=== PATIENT | female | born 1960 | race Caucasian/White ===

== ENCOUNTER → 2016-09-15 | Outpatient (CLI) | payer OTHER ==
[~2016-09-15] MED LIST: ACET-1256 PO; FLX5 PO; RXC5 PO
--- NOTE | 2016-09-15 15:07 | MAMMOGRAPHY REPORT ---
BILATERAL DIGITAL SCREENING MAMMOGRAM WITH CAD: 09/15/2016 TECHNIQUE: Current study was also evaluated with a Computer Aided Detection (CAD) system. Bilatera l CC and MLO views were obtained. COMPARISON: Comparison is made to exams dated: 08/06/2015 mammogram, 08/04/2014 mammogram, 08/01/2013 mammogram, 07/30/2012 mammogram, 08/02/2011 mammogram, and 07/28/2011 mammogram - [facility]. BREAST COMPOSITION: The tissue of both breasts is heterogeneously dense, which may obscure small ma sses. FINDINGS: No suspicious masses, calcifications, or areas of architectural distortion are noted in e ither breast. There has been no significant interval change compared to prior exams. IMPRESSION: ACR BI-RADS CATEGORY 1: NEGATIVE There is no mammographic evidence of malignancy. A 1 year screening mammogram is recommended. The p atient will receive written notification of the results. Approximately 10% of breast cancers are not detected with mammography. A negative mammographic repor t should not delay biopsy if a clinically suggestive mass is present. Rhina Kuo M.D. ah/:09/15/2016 12:09:47 Engineering Mechanic: Lori Young RT(R)(M), [facility] letter sent: Normal 1/2 BI-RADS Code: ACR BI-RADS Category 1: Negative
== END | disposition home or self-care (01) ==
LOC: C.MAMM 11:01
PROVIDERS: ATTEND Obstetrics & Gynecology
DX: Z12.31 Encounter for screening mammogram for malignant neoplasm of breast (principal)

== ENCOUNTER → 2016-11-21 | Outpatient (CLI) | payer OTHER | END | disposition home or self-care (01) | LOC: C.PAPS 12:05 | PROVIDERS: ATTEND Obstetrics & Gynecology | DX: Z12.4 Encounter for screening for malignant neoplasm of cervix (principal); Z11.51 Encounter for screening for human papillomavirus (HPV) ==

== ENCOUNTER → 2017-09-20 | Outpatient (CLI) | payer OTHER ==
--- NOTE | 2017-09-20 15:47 | MAMMOGRAPHY REPORT ---
UNILATERAL LEFT DIGITAL DIAGNOSTIC MAMMOGRAM TOMOSYNTHESIS: 09/20/2017 CLINICAL HISTORY: Callback from screening mammogram for left breast asymmetry. TECHNIQUE: Breast tomosynthesis in addition to standard 2D mammography was performed. A full left X CCL and spot compression left CC and MLO 2D and tomosynthesis images were obtained. COMPARISON: Comparison is made to exams dated: 09/18/2017 mammogram, 09/15/2016 mammogram, 08/04/2014 m ammogram, 07/30/2012 mammogram, and 08/02/2011 ultrasound - [facility]. BREAST COMPOSITION: The tissue of the left breast is heterogeneously dense, which may obscure small masses. FINDINGS: The previously described nodular asymmetry seen within the left lateral posterior breast on the cc images effaces on the additional views and has the appearance of normal fibroglandular tissue on the additional tomosynthesis images. No suspicious masses, calcifications, or areas of crm architect ural distortion are noted on the additional views. The finding is benign and compatible with normal fibroglandular tissue. IMPRESSION: ACR BI-RADS CATEGORY 2: BENIGN The left breast asymmetry effaces on the additional views, and is benign and compatible with normal f ibroglandular tissue. There is no mammographic evidence of malignancy. A 1 year screening mammogram is recommended. The patient has been verbally notified of the results. Approximately 10% of breast cancers are not detected with mammography. A negative mammographic report should not delay biopsy if a clinically suggestive mass is present. Rhina Kuo M.D. /:09/20/2017 11:50:10 Computer Project Manager: Delicia ANTOINE)(Aguilar), [facility] letter sent: Normal 1/2 BI-RADS Code: ACR BI-RADS Category 2: Benign
== END | disposition home or self-care (01) ==
LOC: C.MAMM 11:21
PROVIDERS: ATTEND Obstetrics & Gynecology
DX: N64.89 Other specified disorders of breast (principal); R92.2 Inconclusive mammogram

== ENCOUNTER 2018-12-16 07:57 | Inpatient (IN) ==
[2018-12-16] MEDS ORDERED: ACETAMINOPHEN 500 MG TAB PO STA (08:18)
[2018-12-16] MEDS ORDERED: AZTREONAM 2,000 MG in DEXTROSE 5% 100 ML IV STA (08:18)
[2018-12-16] MEDS ORDERED: VANCOMYCIN CONSULT ACTIVE PRN (08:18)
[2018-12-16] MEDS ORDERED: ALBUTEROL 0.083% NEBU SOLN 3 ML VIAL NEB STA ×2 (08:18→10:04)
[2018-12-16] MEDS ORDERED: VANCOMYCIN HCL 1,000 MG/270 ML BAG IV STA (08:18)
[2018-12-16] MEDS ORDERED: LEVOFLOXACIN/D5W 750 MG/150 ML BAG IV STA (08:18)
[2018-12-16] MEDS ORDERED: HYDROmorphone INJ 0.5 MG/0.5 ML SYR IV PRN (08:26)
[2018-12-16] MEDS ORDERED: ONDANSETRON INJ 2 MG/ML 2 ML VIAL IV STA (08:27)
[2018-12-16 08:49] LABS: Basophils # (auto) 0.01 K/uL (0-0.2); Basophils % (auto) 0.1 %; Eosinophils # (auto) 0.01 K/uL (0-0.5); Eosinophils % (auto) 0.1 %; Hematocrit (blood only) 37.1 % (37-47); Hemoglobin 12.8 g/dL (12.0-16.0); Immature Granulocytes # (auto) 0.02 K/uL (0.00-0.02); Immature Granulocytes % (auto) 0.3 %; Lymphocytes % (auto) 7.4 %; Mean Corpuscular Hgb Conc 34.5 g/dL (32-36); Mean Corpuscular Volume 92.5 fL (80-100); Monocytes # (auto) 0.37 K/uL (0.11-0.59); Monocytes % (auto) 5.5 %; Neutrophils # (auto) 5.87 K/uL (1.4-6.5); Neutrophils % (auto) 86.6 %; Platelet Count 132 K/uL (130-400); RDW Coefficient of Variation 12.1 % (11.5-14.5); RDW Standard Deviation 41.3 fL (36.4-46.3); Red Blood Count 4.01 M/uL (4.2-5.4); White Blood Count 6.78 K/uL (4.8-10.8)
[2018-12-16 09:00] LABS: INR 1.1 (0.9-1.1); Partial Thromboplastin Ratio 1.1; Prothrombin Time 11.2 Seconds (9.0-12.0)
[2018-12-16 09:10] LABS: Alanine Aminotransferase 42 U/L (12-78); Albumin Level 3.6 gm/dl (3.4-5.0); Aspartate Aminotransferase 37 U/L (15-37); BUN Creatinine Ratio 14.4 (10-20); Blood Urea Nitrogen 13 mg/dl (7-18); Calcium 9.3 mg/dl (8.5-10.1); Carbon Dioxide 27 mmol/L (21-32); Chloride 103 mmol/L (98-107); Creatinine Clr Calc Pharmacy 75.4 ml/min; Est GFR (African American) 83.4; Est GFR (Non-African American) 71.9; Glucose 126 mg/dl (70-99); Potassium 3.8 mmol/L (3.5-5.1); Sodium 137 mmol/L (136-145)
[2018-12-16 09:13] LABS: iSTAT Creatinine 0.8 mg/dl (0.6-1.3); iSTAT Hemoglobin 12.6 g/dl (12.0-16.0); iSTAT Ionized Calcium 1.12 mmol/l (1.12-1.32); iSTAT Potassium 3.8 mEq/L (3.3-5.0)
[2018-12-16 09:15] LABS: Albumin Globulin Ratio 0.9 (0.9-2); Alkaline Phosphatase 63 U/L (45-117); Bilirubin,Total 0.7 mg/dl (0.2-1); Creatine Kinase 45 U/L (26-192); Creatine Kinase MB < 1.0 ng/ml (0.5-3.6); Total Protein 7.6 gm/dl (6.4-8.2); Troponin I < 0.015 ng/ml (0-0.045)
--- NOTE | 2018-12-16 09:33 | XRay Report ---
XR chest 1V portable HISTORY: Sepsis COMPARISON: Chest CTA 12/15/2018. FINDINGS: No pneumothorax. The heart is normal in size. The right lung is clear. Trace left pleural e ffusion with a small left basilar density. Old, healed left-sided rib fractures. IMPRESSION: Trace left pleural effusion with a small left basilar density. This is nonspecific but favor subsegme ntal atelectasis. Electronically signed by: Lionel Rodriguez M.D. 12/16/2018 9:32 AM
--- NOTE | 2018-12-16 09:58 | Ultrasound Report ---
BILATERAL LOWER EXTREMITY VENOUS DOPPLER HISTORY: Pt c/o pleural effusion recent travel COMPARISON STUDY: None. FINDINGS: There is normal compressibility, flow, and augmentation within the bilateral lower extremit y deep venous systems. IMPRESSION: No DVT within the right or left lower extremity. Electronically signed by: Lionel Rodriguez M.D. 12/16/2018 9:56 AM
[2018-12-16] MEDS ORDERED: KETOROLAC 30 MG/ML VIAL IV STA (10:04)
--- NOTE | 2018-12-16 12:40 | Emergency Department Note ---
Entered by Stephany Mcelroy acting as a scribe for History of Present Illness General Chief complaint: Fever Stated complaint: FEVER, LUNG INFECTION Time Seen by Provider: 12/16/18 08:07 Source: patient History of Present Illness Onset (ago): hour(s) (this morning) Location: head Pain Consistency: + other (episode) Maximum Pain Intensity: 8 Quality: + other (fever) Relieved By: not by medication (Ibuprofen) Associated symptoms: + other (left back pain) The patient is a 58 year old female that is presenting to the Emergency Room with complaints of an episode of a fever that started this morning. The patient reports that she was in the ED yesterday for left back pain and was diagnosed with a left pleural effusion. She notes that she was started on a course of Doxycycline and was told to return to the ED if she developed a fever. She states that she had a fever of 101.8F this morning upon waking. The patient reports that she took Ibuprofen every 4 hours yesterday and then an oxycodone last night before bed. She denies taking any medication this morning prior to arrival. She states that she used her incentive spirometer as prescribed yesterday. She notes that her left back pain is still present today. Home Medications Home Medications Medication Instructions Recorded Confirmed Type docusate sodium [Colace] 100 mg PO BID #60 cap 12/15/18 12/16/18 Rx doxycycline hyclate 100 mg PO BID 10 Days #20 tab 12/15/18 12/16/18 Rx glucosamine sulfate [Glucosamine] 500 mg PO BID 12/15/18 12/16/18 History multivitamin 1 cap PO QAM 12/15/18 12/16/18 History naproxen sodium [Aleve] 220 mg PO BID PRN 12/15/18 12/16/18 History omega 6-npt-jej-fish oil [Fish Oil] 1 cap PO DIRECTED 12/15/18 12/16/18 History oxycodone 5 mg PO Q6H #14 tab 12/15/18 12/16/18 Rx sennosides [Senokot] 8.6 mg PO HS #30 tab 12/15/18 12/16/18 Rx Allergies Allergy/AdvReac Type Severity Reaction Status Date / Time Penicillins Allergy Unknown ? Verified 12/16/18 08:48 Past Med/Surg History Social History Preferred Language: Italian Communication Ability: Effective Beliefs That Will Affect Care: None marital status: Current Living Situation: Spouse current occupational status: employed Other Information That Helps Us Care for You: No Feels Safe at Home: Yes Safety Concerns: Feels Safe At This Time Smoking Status: Former smoker Hx Alcohol Use: Yes Alcohol type: wine Hx Substance Use: No Review of Systems See HPI for pertinent positives & negatives. and A total of 10 systems reviewed and were otherwise negative Physical Exam Vital Signs Vital Signs - 24 hr 12/16/18 08:08 12/16/18 08:25 12/16/18 08:30 Temperature 38.1 C H Temperature Source Oral Sepsis Recent Fever Within 48 Hours Yes Sepsis New/Unexplained Change in Mental Status No Sepsis Action Taken by Nursing No Action Required Pulse Rate 92 H 99 H 89 Pulse Rate [Apical] Pulse Rhythm Regular Pulse Strength Normal Respiratory Rate 20 21 30 H Respiratory Effort / Characteristics Non-Labored Spontaneous Respiratory Depth Normal Respiratory Pattern Regular Blood Pressure 120/74 Blood Pressure Mean 89 Blood Pressure Position Sitting Pulse Oximetry 95 Oxygen Delivery Method Room Air 12/16/18 09:00 12/16/18 09:03 12/16/18 09:18 Temperature Temperature Source Sepsis Recent Fever Within 48 Hours Sepsis New/Unexplained Change in Mental Status Sepsis Action Taken by Nursing Pulse Rate 78 Pulse Rate [Apical] 76 Pulse Rhythm Pulse Strength Respiratory Rate 24 14 Respiratory Effort / Characteristics Spontaneous Respiratory Depth Respiratory Pattern Blood Pressure Blood Pressure Mean Blood Pressure Position Pulse Oximetry 96 Oxygen Delivery Method Room Air Room Air 12/16/18 09:30 12/16/18 10:01 12/16/18 10:02 Temperature Temperature Source Sepsis Recent Fever Within 48 Hours Sepsis New/Unexplained Change in Mental Status Sepsis Action Taken by Nursing Pulse Rate 90 95 H 96 H Pulse Rate [Apical] Pulse Rhythm Pulse Strength Respiratory Rate 18 24 24 Respiratory Effort / Characteristics Respiratory Depth Respiratory Pattern Blood Pressure 105/63 Blood Pressure Mean 77 Blood Pressure Position Pulse Oximetry Oxygen Delivery Method 12/16/18 10:08 Temperature 37 C Temperature Source Oral Sepsis Recent Fever Within 48 Hours Sepsis New/Unexplained Change in Mental Status Sepsis Action Taken by Nursing Pulse Rate Pulse Rate [Apical] Pulse Rhythm Pulse Strength Respiratory Rate Respiratory Effort / Characteristics Non-Labored Spontaneous Respiratory Depth Normal Respiratory Pattern Regular Blood Pressure Blood Pressure Mean Blood Pressure Position Pulse Oximetry Oxygen Delivery Method Room Air GENERAL: Awake, alert, well-appearing, in no acute distress HENT: Normocephalic, atraumatic. Oropharynx unremarkable. EYES: Normal conjunctiva. Sclera non-icteric. NECK: Supple. No nuchal rigidity. FROM. No JVD. RESPIRATORY: Clear to auscultation. CARDIAC: Regular rate, normal rhythm. Extremities warm and well perfused. Pulses equal. ABDOMEN: Soft, non-distended. No tenderness to palpation. No rebound or guarding. No masses. RECTAL: Deferred. MUSCULOSKELETAL: Chest examination reveals no tenderness. The back is symmetrical on inspection without obvious abnormality. There is no CVA tenderness to palpation. No joint edema. LOWER EXTREMITIES: Calves are equal size bilaterally and non-tender. No edema. No discoloration. NEURO: Normal sensorium. No sensory or motor deficits noted. SKIN: No rash or jaundice noted. Course 0813:The patient was evaluated in room B02. A complete history and physical examination was performed. 1002: I discussed the patients case with a resident for Dr. Nguyen [facility], who will evaluate the patient for further management and care. 1010: Upon reevaluation, the patient is resting comfortably. I discussed laboratory and radiographic results with the patient. She verbalized agreement of the treatment plan. The patient will be evaluated for further management and care. Administered Medications Hydromorphone HCl (Dilaudid) 0.5 mg IV Q15M PRN PRN Reason: Pain Stop: 12/30/18 08:25 Last Admin: 12/16/18 08:53 Dose: 0.5 mg Documented by: [id number] Discontinued Medications Acetaminophen (Tylenol) 1,000 mg PO NOW STA Stop: 12/16/18 08:19 Last Admin: 12/16/18 08:53 Dose: 1,000 mg Documented by: [id number] Albuterol (Ventolin 0.083% 2.5mg/3ml) 2.5 mg NEB NOW STA Stop: 12/16/18 08:19 Last Admin: 12/16/18 09:17 Dose: 2.5 mg Documented by: [id number] Albuterol (Ventolin 0.083% 2.5mg/3ml) 2.5 mg NEB NOW STA Stop: 12/16/18 10:05 Last Admin: 12/16/18 10:48 Dose: 2.5 mg Documented by: [id number] Vancomycin HCl (Vancomycin Hcl) 1,000 mg in 270 mls @ 125 mls/hr IV NOW STA Stop: 12/16/18 10:27 Last Infusion: 12/16/18 12:13 Dose: 0 mls/hr Documented by: [id number] Admin: 12/16/18 10:03 Dose: 125 mls/hr Documented by: [id number] Aztreonam 2,000 mg/ Dextrose 110 mls @ 100 mls/hr IV NOW STA; Protocol Stop: 12/16/18 09:23 Last Infusion: 12/16/18 10:14 Dose: 0 mls/hr Documented by: [id number] Admin: 12/16/18 08:52 Dose: 100 mls/hr Documented by: [id number] Levofloxacin/Dextrose (Levaquin/D5w) 750 mg in 150 mls @ 100 mls/hr IV NOW STA Stop: 12/16/18 09:47 Last Infusion: 12/16/18 11:00 Dose: 0 mls/hr Documented by: [id number] Admin: 12/16/18 09:10 Dose: 100 mls/hr Documented by: [id number] Ketorolac Tromethamine (Toradol) 30 mg IV NOW STA Stop: 12/16/18 10:05 Last Admin: 12/16/18 10:38 Dose: 30 mg Documented by: [id number] Ondansetron HCl (Zofran) 4 mg IV NOW STA Stop: 12/16/18 08:28 Last Admin: 12/16/18 08:52 Dose: 4 mg Documented by: [id number] Medical Decision Making Differential Diagnosis Differential diagnosis: Etiologies such as viral syndrome, otitis, pharyngitis, pneumonia, influenza, meningitis, urinary tract infection, sepsis, bacteremia, as well as others were entertained. Medical Records Attestation: I reviewed the patient's medical records. Home Medications Current Medication List: was personally reviewed by me Laboratory Data Attestation: I reviewed the patient's lab results. Result diagrams: 12/16/18 08:39 12/16/18 08:39 Lab Results 12/16/18 12/16/18 12/16/18 Range/Units 08:39 08:39 08:39 WBC 6.78 (4.8-10.8) K/uL RBC 4.01 L (4.2-5.4) M/uL Hgb 12.8 (12.0-16.0) g/dL POC Hgb (12.0-16.0) g/dl Hct 37.1 (37-47) % POC Hct (37-47) % MCV 92.5 (80-100) fL MCH 31.9 (25-34) pg MCHC 34.5 (32-36) g/dL RDW Std Deviation 41.3 (36.4-46.3) fL RDW Coeff of Shante 12.1 (11.5-14.5) % Plt Count 132 (130-400) K/uL MPV 9.0 (7.4-10.4) fL Immature Gran % (Auto) 0.3 % Neut % (Auto) 86.6 % Lymph % (Auto) 7.4 % [place] % (Auto) 5.5 % Eos % (Auto) 0.1 % Baso % (Auto) 0.1 % Immature Gran # (Auto) 0.02 (0.00-0.02) K/uL Neut # (Auto) 5.87 (1.4-6.5) K/uL Lymph # (Auto) 0.50 L (1.2-3.4) K/uL [place] # (Auto) 0.37 (0.11-0.59) K/uL Eos # (Auto) 0.01 (0-0.5) K/uL Baso # (Auto) 0.01 (0-0.2) K/uL PT 11.2 (9.0-12.0) Seconds INR 1.1 (0.9-1.1) APTT 29.0 (21.0-31.0) Seconds PTT Ratio 1.1 POC Sodium (135-144) mEq/L Sodium 137 (136-145) mmol/L POC Potassium (3.3-5.0) mEq/L Potassium 3.8 (3.5-5.1) mmol/L POC Chloride (101-112) mEq/L Chloride 103 (98-107) mmol/L Carbon Dioxide 27 (21-32) mmol/L POC Total CO2 (24-31) mEq/l Anion Gap 7.0 (3-11) POC Anion Gap (16-25) mmol/L POC BUN (7-18) mg/dl BUN 13 (7-18) mg/dl Creatinine 0.89 (0.6-1.2) mg/dl POC Creatinine (0.6-1.3) mg/dl Est Cr Clr Drug Dosing 75.4 ml/min Est GFR ( Amer) 83.4 Est GFR (Non-Af Amer) 71.9 BUN/Creatinine Ratio 14.4 (10-20) Glucose 126 H (70-99) mg/dl POC Glucose (other) (70-99) mg/dl Lactate (0.4-2.0) mmol/L Calcium 9.3 (8.5-10.1) mg/dl POC Ioniz Calcium Yoko (1.12-1.32) mmol/l Total Bilirubin 0.7 (0.2-1) mg/dl AST 37 (15-37) U/L ALT 42 (12-78) U/L Alkaline Phosphatase 63 (45-117) U/L Total Creatine Kinase 45 (26-192) U/L CK-MB (CK-2) < 1.0 (0.5-3.6) ng/ml CK/CKMB % Calc TNP Troponin I < 0.015 (0-0.045) ng/ml Total Protein 7.6 (6.4-8.2) gm/dl Albumin 3.6 (3.4-5.0) gm/dl Globulin 4.0 (2.5-4.0) gm/dl Albumin/Globulin Ratio 0.9 (0.9-2) Procalcitonin (0-0.5) ng/ml 12/16/18 12/16/18 12/16/18 Range/Units 08:39 08:39 08:44 WBC (4.8-10.8) K/uL RBC (4.2-5.4) M/uL Hgb (12.0-16.0) g/dL POC Hgb 12.6 (12.0-16.0) g/dl Hct (37-47) % POC Hct 37 (37-47) % MCV (80-100) fL MCH (25-34) pg MCHC (32-36) g/dL RDW Std Deviation (36.4-46.3) fL RDW Coeff of Shante (11.5-14.5) % Plt Count (130-400) K/uL MPV (7.4-10.4) fL Immature Gran % (Auto) % Neut % (Auto) % Lymph % (Auto) % [place] % (Auto) % Eos % (Auto) % Baso % (Auto) % Immature Gran # (Auto) (0.00-0.02) K/uL Neut # (Auto) (1.4-6.5) K/uL Lymph # (Auto) (1.2-3.4) K/uL [place] # (Auto) (0.11-0.59) K/uL Eos # (Auto) (0-0.5) K/uL Baso # (Auto) (0-0.2) K/uL PT (9.0-12.0) Seconds INR (0.9-1.1) APTT (21.0-31.0) Seconds PTT Ratio POC Sodium 135 (135-144) mEq/L Sodium (136-145) mmol/L POC Potassium 3.8 (3.3-5.0) mEq/L Potassium (3.5-5.1) mmol/L POC Chloride 99 L (101-112) mEq/L Chloride (98-107) mmol/L Carbon Dioxide (21-32) mmol/L POC Total CO2 24 (24-31) mEq/l Anion Gap (3-11) POC Anion Gap 17.0 (16-25) mmol/L POC BUN 11 (7-18) mg/dl BUN (7-18) mg/dl Creatinine (0.6-1.2) mg/dl POC Creatinine 0.8 (0.6-1.3) mg/dl Est Cr Clr Drug Dosing ml/min Est GFR ( Amer) Est GFR (Non-Af Amer) BUN/Creatinine Ratio (10-20) Glucose (70-99) mg/dl POC Glucose (other) 131 H (70-99) mg/dl Lactate 0.8 (0.4-2.0) mmol/L Calcium (8.5-10.1) mg/dl POC Ioniz Calcium Yoko 1.12 (1.12-1.32) mmol/l Total Bilirubin (0.2-1) mg/dl AST (15-37) U/L ALT (12-78) U/L Alkaline Phosphatase (45-117) U/L Total Creatine Kinase (26-192) U/L CK-MB (CK-2) (0.5-3.6) ng/ml CK/CKMB % Calc Troponin I (0-0.045) ng/ml Total Protein (6.4-8.2) gm/dl Albumin (3.4-5.0) gm/dl Globulin (2.5-4.0) gm/dl Albumin/Globulin Ratio (0.9-2) Procalcitonin 0.17 (0-0.5) ng/ml Imaging Data Radiologist's Impression: Radiology results as stated below per my review and the radiologist's interpretation: XR chest 1V portable HISTORY: Sepsis COMPARISON: Chest CTA 12/15/2018. FINDINGS: No pneumothorax. The heart is normal in size. The right lung is clear. Trace left pleural effusion with a small left basilar density. Old, healed left- sided rib fractures. IMPRESSION: Trace left pleural effusion with a small left basilar density. This is nonspecific but favor subsegmental atelectasis. Electronically signed by: Lionel Rodriguez M.D. 12/16/2018 9:32 AM BILATERAL LOWER EXTREMITY VENOUS DOPPLER HISTORY: Pt c/o pleural effusion recent travel COMPARISON STUDY: None. FINDINGS: There is normal compressibility, flow, and augmentation within the bilateral lower extremity deep venous systems. IMPRESSION: No DVT within the right or left lower extremity. Electronically signed by: Lionel Rodriguez M.D. 12/16/2018 9:56 AM ECG Data Attestation: I personally reviewed and interpreted this ECG as follows: Indication: other (fever) Rate (beats per minute): 81 Rhythm: normal sinus Findings: + T-wave inversion (Anterior); no ST depression, no ST elevation and no acute ischemic change Comparison ECG Date: from (12/15/2018) Change: no significant change Blood Pressure Blood Pressure Findings: Normal blood pressure MDM Narrative This is a 58-year-old female who presents back to the emergency department with a fever after being diagnosed with a pleural effusion yesterday. The patient has been taking doxycycline as well as ibuprofen and Tylenol at home however is still complaining of pain. Based on the patient's complaint she was sent for a chest x-ray. Because the patient was on a recent trip to [place] she was also sent for a bilateral duplex of her lower extremities in case this is a DVT versus PE. She was given Tylenol Dilaudid as well as Toradol for her pain. She was also given albuterol breathing treatments. I did discuss the case with the hospitalist service who agreed to admit the patient. In the meantime blood cultures were obtained and the patient was started on aztreonam Levaquin and vancomycin. Patient was in agreement with the treatment plan. Impression & Plan Fever, Pleural effusion Discharge Plan Visit Data *Final* Discharge Date/Time: 12/16/18 11:09 Chief Complaint: Fever Stated Complaint: FEVER, LUNG INFECTION ED Provider: Abbe Trujillo Discharge Problem: Fever, Pleural effusion Patient Disposition: Admitted As Inpatient Discharge Instructions Interventions: ED Discharge Assessment Last Done: 12/16/18 11:09 Discharge Problem: Fever Qualifiers: Fever type: unspecified Qualified Code(s): R50.9 - Fever, unspecified The scribe's documentation has been prepared under my direction and personally reviewed by me in its entirety. I confirm that the note above accurately reflects all work, treatment, procedures, and medical decision making performed by me.
--- NOTE | 2018-12-16 13:40 | History & Physical Report ---
Date of Service December 16, 2018 Assessment & Plan (1) Back pain: Back Pain likely secondary to rhomboid muscle strain, Able to somewhat recreate character of pain with digital manipulation of muscle No concerning signs or symptoms, completely resolved at this point Will discharge with voltaren gel to be used PRN\ CTA showing no PE, no evidence of infection, and a trace PE CXR showing trace Pleural effusion. Fever Fever overnight and this morning, currently afebrile Only accompanying symptoms was headache no meningitic signs Likely viral, but will check Lyme titer and call in doxy if needed. Pleural Effusion Likely post traumatic from falls off of horses vs 2/2 viral illness. No call for any further workup at this time, maybe repeat CXR in 3 months (2) Pleural effusion: (3) Fever: History of Present Illness Chief Complaint: Back Pain Primary Care Provider: Marilyn Antonio MD Travelled down to [place] on Monday and her back started to hurt on Monday while she was down there. Moving furniture into a condominium. Flew back on Monday, back was worse on the plane. Yesterday she had been up all night and was in pain worse than before and had imaging done and patient was sent home with antibiotic and some pain killers. She developed a fever last night, was in a large amount of pain and came back this morning. Fever last night was 102 measured by under tongue digital thermometer. Describes back pain as being right under her left shoulder blade, only on left side, large area. Moving makes it worse particularly sitting up. Moving arm makes it feel a little better. Patient took tylenol and advil every two hours for pain relief, all were very ineffective. pain is fine now. Patient has a history of retroperitoneal hemorrhage and hematoma three years ago on right side. Patient had a summer cold that lasted about 2 weeks 2 months ago. In ED patient was evaluated with CXR which showed same trace pleural effusion and was given hydromorphone for pain as well as broad spectrum IV antibiotics. By the time she was evaluated by myself, she endorses absolutely no pain, and no longer feels sick at all. She does have a slight headache. Allergies Allergy/AdvReac Type Severity Reaction Status Date / Time Penicillins Allergy Unknown ? Verified 12/16/18 08:48 Home Medications Home Medications Medication Instructions Recorded Confirmed Type docusate sodium [Colace] 100 mg PO BID #60 cap 12/15/18 12/16/18 Rx glucosamine sulfate [Glucosamine] 500 mg PO BID 12/15/18 12/16/18 History multivitamin 1 cap PO QAM 12/15/18 12/16/18 History naproxen sodium [Aleve] 220 mg PO BID PRN 12/15/18 12/16/18 History omega 9-[id number] oil [Fish Oil] 1 cap PO DIRECTED 12/15/18 12/16/18 History sennosides [Senokot] 8.6 mg PO HS #30 tab 12/15/18 12/16/18 Rx diclofenac sodium [Voltaren] 2 gm TOP QID #100 gm 12/16/18 Rx Past Med/Surg History Social History Preferred Language: Maori Communication Ability: Effective Beliefs That Will Affect Care: None marital status: Current Living Situation: Spouse current occupational status: employed Other Information That Helps Us Care for You: No Feels Safe at Home: Yes Safety Concerns: Feels Safe At This Time Smoking Status: Former smoker Hx Alcohol Use: Yes Alcohol type: wine Hx Substance Use: No Review of Systems Constitutional: + fever, + chills and + insomnia; no sweats, no weight loss a nd no weight gain Eyes: no problem reported Ear, Nose, Mouth, Throat: + nasal congestion; no ear pain and no epistaxis Respiratory: + pain on inspiration (deep); no cough and no dyspnea Cardiovascular: + edema (Right leg, varicose veins); no chest pain, no dyspnea, no lightheadedness and no calf pain Gastrointestinal: no abdominal pain, no nausea and no vomiting Genitourinary: no dysuria, no difficulty urinating, no abnormal vaginal bleeding and no vaginal discharge Patient is post menapausal Neurologic: no falls Physical Exam Constitutional: well developed, well nourished, cooperative and comfortable; no acute distress Respiratory: normal respiratory effort, lungs clear to auscultation Cardiovascular: Rate/Rhythm: regular rate and regular rhythm Heart Sounds: normal S1 and normal S2; no click, no gallop, no murmur and no cardiac rub Extremities: + edema (Right leg greater than left leg, chronic for patient with varicose veins) Gastrointestinal (Abdomen): Inspection/Auscultation: abdomen normal to inspection and + abdominal wall ecchymosis; abdomen not distended Percussion/Palpation: abdomen soft; abdomen nontender, no hepatosplenomegaly, no hernia and no abdominal mass Skin: no rashes, warm and dry Results & Data Vital Signs (Past 12 Hours) Vital Signs Temp Pulse Pulse Resp BP BP Pulse Ox 12/16/18 11:32 36.8 C 93 H 16 102/67 92 12/16/18 11:09 83 18 97/52 L 98 12/16/18 10:48 83 16 97 12/16/18 10:08 37 C 12/16/18 10:02 96 H 24 12/16/18 10:01 95 H 24 105/63 12/16/18 09:30 90 18 12/16/18 09:18 76 14 96 12/16/18 09:00 78 24 12/16/18 08:30 89 30 H 12/16/18 08:25 99 H 21 12/16/18 08:08 38.1 C H 92 H 20 120/74 95 Code Status & VTE Plan Code Status Full Code VTE Prophylaxis Plan VTE Prophylaxis will be ordered: No Reason for no VTE mechanical prophylaxis: Treatment not indicated Supervising Physician Co-Signing Physician Notes I personally examined the patient and verified all callaway points of history and exam, discussed case, and agree with decision making with Dr Ferrer. Came predominantly for back pain, also having fevers. Interestingly by the time she arrived to the floor her back pain is significantly improved and she would like to go home. Vitals noted, in general she is awake and alert pleasant no distress. HEENT n ormocephalic atraumatic mucous membranes are moist, neck is supple with no nuchal rigidity or meningeal signs. Cranial nerves II through XII grossly intact gross motor and sensory intact with no deficits. Mental status is good recent and remote recall normal mood and affect good judgment insight. Speech is fluent. Musculoskeletal shows a small degree of tenderness in her lower medial scapular margin, with some soft tissue high in tone, decreased range of motion and tenderinhibitory pressure/ligamentous articular strain done with some improvement in the tissue texture. Patient tolerated well. Back painseems to have been thoracic muscle spasm (most likely rhomboid) improved significantly with treatment from ER. OMT done to try to facilitate faster resolution. Safe for home with diclofenac gel 4 times daily. Feverfairly nonspecific, most likely viral. Given that we are in endemic area Lyme screen was sent. Discussed that even a negative screen could represent a false negative in the right contextin her context we suggested reasonable parameters to revisit treatment being if she were to have a fever beyond the next 2 days, or any other signs or symptoms more characteristic of Lyme such as target rash, joint pain, or myalgias. Pleural effusionvery small on CT, does not seem that it would even be big enough to tap. Nonspecific. Given that her Lyme is negative and the most likely etiology of her fever is viral, it may even be related to that. Could easily relate to old horse riding related trauma. Certainly does not seem to be causing her symptoms. Safe/stable for home, PCP to continue to follow this (most likely repeat imaging in a few months). Stable for home PG Care Time/CCT Total # of Minutes Spent Total Time Spent with Patient: Total time spent is greater than 50% in coordination of care (as documented) at patient's floor/unit and/or counseling patient: Resident Activity Tracking Resident Involvement: Resident Care Provided Care Provided: Adult Hospital Medicine (1) Fever Fever type: unspecified Qualified Code(s): R50.9 - Fever, unspecified (2) Back pain Back pain laterality: left Back pain location: thoracic back pain Chronicity: acute Qualified Code(s): M54.6 - Pain in thoracic spine
--- NOTE | 2018-12-16 16:14 | Discharge Summary ---
Date of Service December 16, 2018 Admission HPI Per Admitting Provider Travelled down to [place] on Monday and her back started to hurt on Monday while she was down there. Moving furniture into a condominium. Flew back on Monday, back was worse on the plane. Yesterday she had been up all night and was in pain worse than before and had imaging done and patient was sent home with antibiotic and some pain killers. She developed a fever last night, was in a large amount of pain and came back this morning. Fever last night was 102 measured by under tongue digital thermometer. Describes back pain as being right under her left shoulder blade, only on left side, large area. Moving makes it worse particularly sitting up. Moving arm makes it feel a little better. Patient took tylenol and advil every two hours for pain relief, all were very ineffective. pain is fine now. Patient has a history of retroperitoneal hemorrhage and hematoma three years ago on right side. Patient had a summer cold that lasted about 2 weeks 2 months ago. In ED patient was evaluated with CXR which showed same trace pleural effusion and was given hydromorphone for pain as well as broad spectrum IV antibiotics. By the time she was evaluated by myself, she endorses absolutely no pain, and no longer feels sick at all. She does have a slight headache. Admission Exam Per Admitting Provider Constitutional: well developed, well nourished, cooperative and comfortable; no acute distress Respiratory: normal respiratory effort, lungs clear to auscultation Cardiovascular: Rate/Rhythm: regular rate and regular rhythm Heart Sounds: normal S1 and normal S2; no click, no gallop, no murmur and no cardiac rub Extremities: + edema (Right leg greater than left leg, chronic for patient with varicose veins) Gastrointestinal (Abdomen): Inspection/Auscultation: abdomen normal to inspection and + abdominal wall ecchymosis; abdomen not distended Percussion/Palpation: abdomen soft; abdomen nontender, no hepatosplenomegaly, no hernia and no abdominal mass Skin: no rashes, warm and dry Principal Diagnosis Left Rhomboid Muscle Spasm Discharge Exam Constitutional well developed, well nourished, cooperative and comfortable; no acute distress Respiratory normal respiratory effort, lungs clear to auscultation Cardiovascular Rate/Rhythm: regular rate and regular rhythm Heart Sounds: normal S1 and normal S2; no click, no gallop, no murmur and no cardiac rub Extremities: + edema (Right leg greater than left leg, chronic for patient with varicose veins) Gastrointestinal (Abdomen) Inspection/Auscultation: abdomen normal to inspection and + abdominal wall ecchymosis; abdomen not distended Percussion/Palpation: abdomen soft; abdomen nontender, no hepatosplenomegaly, no hernia and no abdominal mass Skin no rashes, warm and dry Discharge Data Allergies Allergy/AdvReac Type Severity Reaction Status Date / Time Penicillins Allergy Unknown ? Verified 12/16/18 08:48 Consultations 12/16/18 10:03 ED Decision to Admit Stat Ordered Studies 12/16/18 08:33 US venous doppler [facility] Stat Hospital Course (1) Back pain: Back Pain likely secondary to rhomboid muscle strain, Able to somewhat recreate character of pain with digital manipulation of muscle No concerning signs or symptoms, completely resolved at this point Will discharge with voltaren gel to be used PRN\ CTA showing no PE, no evidence of infection, and a trace PE CXR showing trace Pleural effusion. Fever Fever overnight and this morning, currently afebrile Only accompanying symptoms was headache no meningitic signs Likely viral, but will check Lyme titer and call in doxy if needed. Pleural Effusion Likely post traumatic from falls off of horses vs 2/2 viral illness. No call for any further workup at this time, maybe repeat CXR in 3 months (2) Pleural effusion: (3) Fever: Total Time Total Time Spent Total Time Spent (In Minutes): <30 Discharge Plan Discharge Items Patient Disposition: Home - Self-Care Reason For Visit: BACK PAIN WITH PLEURAL EFFUSION AND FEVER Discharge Diagnosis: Rhomboid muscle spasm and febrile illness Condition: Good Discharge Goals: Decrease discomfort and Diagnostic testing Activity: Resume your previous activity Non-emergency contact: Primary Care Provider Call non-emergency contact if: you have any medication questions, your symptoms worsen and your pain is not controlled Follow-up/Referrals: Marilyn Richter MD [Primary Care Provider] - Diet: Regular Addtl Provider Instructions: Ms. Stanley, it was our pleasure to evaluate you for your back pain and fever with headache. We believe the cause of your back pain is due to a strained rhomboid muscle secondary to your lifting and moving furniture while down in [place]. I will be sending you home with some voltaren gel which is a topical antiinflammatory that I would recommend applying to the painful area if the pain were to return. Your fever and headache appear to be caused by something completely separate. Whether it is a viral illness I cannot say for certain, but we will test your blood for Lyme Disease now and call in doxycycline for you if that is positive. We do think you have any evidence of any lung infection currently. Your pleural effusion is very very small and likely secondary to a viral infection or secondary to your previous trauma to that area. I will write a summary of everything we discussed and evaluated here in the hospital and send it to your primary care provider. Prescriptions: New diclofenac sodium [Voltaren] 1 % gel 2 gm TOP QID Qty: 100 RF: 0 Continued glucosamine sulfate [Glucosamine] 500 mg Tablet 500 mg PO BID RF: 0 multivitamin Capsule 1 cap PO QAM RF: 0 omega 0-gdz-[id number]-fish oil [Fish Oil] 1,000 mg (120 mg-180 mg) Capsule 1 cap PO DIRECTED RF: 0 naproxen sodium [Aleve] 220 mg Capsule 220 mg PO BID PRN (Reason: Pain) RF: 0 sennosides [Senokot] 8.6 mg tablet 8.6 mg PO HS Qty: 30 RF: 0 docusate sodium [Colace] 100 mg capsule 100 mg PO BID Qty: 60 RF: 0 Discontinued oxycodone 5 mg tablet 5 mg PO Q6H Qty: 14 RF: 0 doxycycline hyclate 100 mg tablet 100 mg PO BID 10 Days Qty: 20 RF: 0 Stand-Alone Forms: My [facility] Discharge Orders: Discharge Order (Routine); Ordered 12/16/18 Ordered By: Delmar Ferrer Admission Data Admit Date/Time: 12/16/18 10:32 Attending Provider: Yusuf Nguyen Admit Provider: Delmar Ferrer Primary Care Provider: Marilyn Richter V. Other Providers: Yusuf Nguyen Service: Medical Other Interventions: Discharge Summary Assessment (RN) Last Done: 12/16/18 16:10 DC Date/Time DO NOT enter until pt leaves facility: 12/16/18 17:17 Supervising Physician Co-Signing Physician Notes I personally examined the patient and verified all callaway points of history and exam, discussed case, and agree with decision making with Dr Ferrer. Came predominantly for back pain, also having fevers. Interestingly by the time she arrived to the floor her back pain is significantly improved and she would like to go home. Vitals noted, in general she is awake and alert pleasant no distress. HEENT normocephalic atraumatic mucous membranes are moist, neck is supple with no nuchal rigidity or meningeal signs. Cranial nerves II through XII grossly intact gross motor and sensory intact with no deficits. Mental status is good recent and remote recall normal mood and affect good judgment insight. Speech is fluent. Musculoskeletal shows a small degree of tenderness in her lower medial scapular margin, with some soft tissue high in tone, decreased range of motion and tenderinhibitory pressure/ligamentous articular strain done with some improvement in the tissue texture. Patient tolerated well. Back painseems to have been thoracic muscle spasm (most likely rhomboid) improved significantly with treatment from ER. OMT done to try to facilitate faster resolution. Safe for home with diclofenac gel 4 times daily. Feverfairly nonspecific, most likely viral. Given that we are in endemic area Lyme screen was sent. Discussed that even a negative screen could represent a false negative in the right contextin her context we suggested reasonable parameters to revisit treatment being if she were to have a fever beyond the next 2 days, or any other signs or symptoms more characteristic of Lyme such as target rash, joint pain, or myalgias. Pleural effusionvery small on CT, does not seem that it would even be big enough to tap. Nonspecific. Given that her Lyme is negative and the most likely etiology of her fever is viral, it may even be related to that. Could easily relate to old horse riding related trauma. Certainly does not seem to be causing her symptoms. Safe/stable for home, PCP to continue to follow this (most likely repeat imaging in a few months). Stable for home Resident Activity Tracking Resident Involvement: Resident Care Provided Care Provided: Adult Hospital Medicine
[2018-12-16 16:44] LABS: Lyme Ab IgG w/WB Rflx Negative (Negative); Lyme Ab IgM w/WB Rflx Negative (Negative)
== END 2018-12-16 17:17 | disposition home or self-care (01) | DRG 552 ==
LOC: ED 07:57 → 3N 10:32